=== PATIENT | male | born 1975 | race Caucasian/White ===

== ENCOUNTER 2017-02-23 06:25 | Observation (INO) | payer BC ==
[~2017-02-23] VITALS: Ht 177.8 cm; Wt 90.7 kg
[2017-02-23 07:11] LABS: HEMOGLOBIN 16.5 gm/dl (14.0-17.5); RED BLOOD COUNT 5.25 M/UL (4.20-5.50); WHITE BLOOD COUNT 5.4 K/UL (4.5-11.0)
[2017-02-23 07:30] LABS: BUN/CREATININE RATIO 14 (0-10)
[2017-02-23] MEDS ORDERED: PROTONIX40 MG PO (09:00)
[2017-02-23] MEDS ORDERED: NORVASC 5 MG TAB5 MG PO (18:55)
[2017-02-23] MEDS ORDERED: ASPIR 8181 MG PO (20:18)
== END 2017-02-23 20:35 | disposition home or self-care (01) ==
LOC: ER1 06:25 → ZEROF 08:06 → MED SURG 4 08:06
PROVIDERS: Physician Assistant; ADMIT Family Medicine
DX: R20.0 Anesthesia of skin (principal); K21.9 Gastro-esophageal reflux disease without esophagitis; I10 Essential (primary) hypertension; Z90.49 Acquired absence of other specified parts of digestive tract; Z79.899 Other long term (current) drug therapy; Z88.1 Allergy status to other antibiotic agents; Z87.891 Personal history of nicotine dependence
CPT/HCPCS: 36415; 70450; 70551; 71010; 72040; 80053; 80061; 82550; 82553; 83874; 84484; 85025; 93005; 99285; G0378

== ENCOUNTER 2021-05-17 21:14 | Emergency (ER) | payer BC ==
[~2021-05-17 21:14] MED LIST: AMOX TR-K CLV1 EAC4 PO; AMOX TR-K CLV1 EAC4 PR; ASPIR 8181 MG PO; ASPIRIN CHEWABL81 MG PO; NORVASC 5 MG TAB5 MG PO; PROTONIX40 MG PO
[2021-05-18 00:23] LABS: HEMOGLOBIN 17.7 gm/dl (14.0-17.5); RED BLOOD COUNT 5.32 M/UL (4.20-5.50); WHITE BLOOD COUNT 7.6 K/UL (4.5-11.0)
[2021-05-18 00:44] LABS: BUN/CREATININE RATIO 16 (0-10)
== END 2021-05-18 01:35 | disposition home or self-care (01) ==
LOC: ER1 21:14
PROVIDERS: Physician Assistant
DX: R20.2 Paresthesia of skin (principal); Z90.49 Acquired absence of other specified parts of digestive tract; Z79.82 Long term (current) use of aspirin
CPT/HCPCS: 70450; 80053; 82550; 82553; 83874; 84484; 85025; 93005; 99284